=== PATIENT | female | born 1995 | race Caucasian/White ===

== ENCOUNTER 2021-01-18 08:34 | Emergency (ER) | payer OTHER, SELFPAY ==
--- NOTE | ~2021-01-18 | US_ITS ---
EXAMINATION: ULTRASOUND PELVIS TRANSABDOMINAL/TRANSVAGINAL COMPLETE CLINICAL INFORMATION: Irregular periods, lower abdominal pain and cramping. COMPARISON: None TECHNIQUE: Multiple 2-D grayscale and Doppler transabdominal/transvaginal ultrasound images of the pelvis were obtained. FINDINGS: Uterus: Anteverted/retroflexed measuring 10.8 x 4.1 x 4.9 cm with a volume of 112 mL. The endometrial stripe measures up to 0.4 cm without focal abnormality. The cervix is closed without abnormality measuring approximately 3.4 cm in length. Right ovary: 4.9 x 3.9 x 4.4 cm with a volume of 39 mL. An associated anechoic cyst measures 3.9 x 3.6 x 3.3 cm. Color Doppler showed no internal vascular flow. Doppler interrogation of the right ovary showed no abnormality. Left ovary: 2.7 x 2.1 x 2.7 cm with a volume of 7.4 mL. A small heterogeneous cyst/follicle measures 1.8 x 1.3 x 1.2 cm. Color Doppler showed no associated vascular flow. Doppler interrogation of the left ovary showed no abnormality. Free fluid: Mild free fluid in the cul-de-sac. US/US pelvic ovarian doppler IMPRESSION: 1. Anteverted/retroflexed uterus without other significant abnormality. 2. Bilateral ovarian cysts, right greater than left as well as mild free fluid in the cul-de-sac are likely physiologic.
--- NOTE | ~2021-01-18 | US_ITS ---
EXAMINATION: ULTRASOUND PELVIS TRANSABDOMINAL/TRANSVAGINAL COMPLETE CLINICAL INFORMATION: Irregular periods, lower abdominal pain and cramping. COMPARISON: None TECHNIQUE: Multiple 2-D grayscale and Doppler transabdominal/transvaginal ultrasound images of the pelvis were obtained. FINDINGS: Uterus: Anteverted/retroflexed measuring 10.8 x 4.1 x 4.9 cm with a volume of 112 mL. The endometrial stripe measures up to 0.4 cm without focal abnormality. The cervix is closed without abnormality measuring approximately 3.4 cm in length. Right ovary: 4.9 x 3.9 x 4.4 cm with a volume of 39 mL. An associated anechoic cyst measures 3.9 x 3.6 x 3.3 cm. Color Doppler showed no internal vascular flow. Doppler interrogation of the right ovary showed no abnormality. Left ovary: 2.7 x 2.1 x 2.7 cm with a volume of 7.4 mL. A small heterogeneous cyst/follicle measures 1.8 x 1.3 x 1.2 cm. Color Doppler showed no associated vascular flow. Doppler interrogation of the left ovary showed no abnormality. Free fluid: Mild free fluid in the cul-de-sac. US/US pelvic and transvaginal IMPRESSION: 1. Anteverted/retroflexed uterus without other significant abnormality. 2. Bilateral ovarian cysts, right greater than left as well as mild free fluid in the cul-de-sac are likely physiologic.
[2021-01-18 08:57] VITALS: BP 122/77; PULSE 57; RESP 18; TEMP 36.6; O2SAT 98; BMI 17.3
[2021-01-18 09:14] LABS: Glucose Urine UA NEG (NEG); Leukocyte Esterase Urine NEG (NEG); Nitrite Urine NEG (NEG); Specific Gravity - Urine 1.025 (1.005-1.025); Urine Blood NEG (NEG); Urine Ketones NEG (NEG); Urine Protein NEG (NEG-TRACE)
[2021-01-18 09:15] LABS: Appearance Urine CLEAR; Color Urine YELLOW
[2021-01-18 09:16] LABS: UPreg QC Valid YES; Urine Pregnancy NEGATIVE (NEGATIVE)
--- NOTE | 2021-01-18 09:33 | ED_ITS ---
HPI - Female Genitourinary General Chief complaint: General Medical Stated complaint: ? Time Seen by Provider: 01/18/21 09:11 Source: patient Mode of arrival: ambulatory Limitations: no limitations History of Present Illness HPI Narrative: 25-year-old female who has had 5 prior pregnancies in the past and 3 live births presenting to the ED with complaints of irregular periods since October with a positive test in October. Although reports that she went to her PCP and had a urine and blood test which were negative. Although she is not convinced that she is not because she had a positive test in October that she was able to show me a picture of. Patient reports she is concerned because she feels her baby moving in her abdomen despite the negative test and blood test. She is requesting repeat urine/ blood and ultrasound to evaluate if she is possibly . She reports I am not crazy I feel something moving in my abdomen and I have a bump . MD elicited complaint: suspected and other Onset (ago): month(s) ( Since October) Location of symptoms: suprapubic Quality of pain: cramping Consistency: intermittent Vaginal discharge: none Vaginal bleeding: none Treatment prior to arrival: none Sexual activity: Yes Possible : unsure if , at home test positive and other ( Although she had a negative urine and serum at her PCPs off ice) Related Data Allergies Allergy/AdvReac Type Severity Reaction Status Date / Time No Known Allergies Allergy Unverified 04/01/20 16:17 [No Known Allergies*] Review of Systems Review of Systems: Constitutional : No Fever, No Chills ENT/Mouth : No sore throat, No Rhinorrhea Eyes: No Eye Pain, No Redness Cardiovascular : No Chest Pain, No SOB Respiratory : No Cough, No Sputum, No Wheezing Gastrointestinal : No Nausea, No Vomiting, No Diarrhea, positive abdominal pain, Genitourinary : + irregular bleeding/menses, No Dysuria, No Urinary Frequency, No pelvic pain, No vaginal discharge, no hematuria Musculoskeletal : No Myalgias Skin : No rash Neuro : No Weakness, No Headache Psych : No Anxiety/Panic, No Depression Heme/Lymph: No bruising, No Lymphadenopathy Endocrine : No Polyuria, No Polydipsia Yes all other systems are reviewed and are negative PMFSH Past Medical History Attestation statement: The following information was validated with the patient. Social History Social History Advance Directives: No Advance Directives Information Provided: No Physical Exam Vital Signs: Vital Signs: Last Vital Signs Temp 98 F 01/18/21 08:57 Pulse 61 01/18/21 11:01 Resp 16 01/18/21 11:01 BP 103/70 01/18/21 11:01 Pulse Ox 98 01/18/21 11:01 Body Mass Index 17.3 vital signs have been reviewed as normal and appeared to be correct. Blood pressure normal. Heart rate normal. Respiration rate normal. Temperature normal. Oxygen saturation normal. Appearance: Alert. Oriented X3. No acute distress. Head: Normal external exam. Normocephalic. Eyes: PERRLA. EOMI. Conjunctiva and sclera normal. Eyelids normal. ENT: Pharynx normal. Uvula midline. Moist mucous membranes. Neck: Normal inspection. Neck supple. FROM. No adenopathy. No meningeal signs. CVS: Normal heart rate and rhythm. Heart sound normal. No murmurs noted. Pulses normal throughout. Respiratory: No respiratory distress. Painless inspiration. Breath sounds normal. No wheezes/rales/rhonchi noted. Chest nontender. No accessory muscle usage noted or decreased air movement noted. Abdomen: Soft and nontender. Nondistended. No guarding. No rigidity. Bowel sounds normal in all 4 quadrants. No distention noted. No organomegaly noted. No visible injury noted. No rebound tenderness. Negative Rovsing sign. Negative obturator's sign. Negative psoas sign. Negative Ferguson sign. Back: No CVA tenderness. Full range of motion noted. Skin: Skin warm and dry. Normal skin color. Normal skin turgor. No rashes/lesions/lacerations noted. Extremities: Extremities exhibit normal range of motion. Extremities nontender. Neuro: Oriented X 3. No motor deficit. No sensory deficit. Reflexes normal. Normal steady gait. Course Course Course Narrative: 9:30am 25-year-old female presenting to the ED with complaints of irregular periods suprapubic abdominal cramping and a positive home test in October. Although followed up with her PCP and had a negative urine and negative blood . Although patient is not convince because she reports she feels something moving in her abdomen. Therefore she is requesting an ultrasound along with a urine and a blood test. - Dr. Beverly and I did a bedside ultrasound and we do not see a sac. Will obtain labs that includes a urine and a serum quant and a pelvic/transvaginal ultrasound then re-evaluate. Reevaluation(s) Reevaluation #1: all labs within normal limits. Patient had a negative serum quant. Patient had a negative urine . UA within normal limits no evidence of UTI. Pelvic/transvaginal /ovarian / Doppler ultrasound revealed bilateral ovarian cyst otherwise no other acute processes. Therefore printed all of this out and given to the patient and told her that there is no way she is . Patient is excited about this I explained to her there is no further workup that she needs at this time. Along with instructions return if any new or worsening symptoms to follow-up with OBGYN/PCP. Patient understands agrees with this plan. Time: 11:14 [facility] - Female Genitourinary Medical Records Attestation: I reviewed the patient's medical records. Lab Data Attestation: I reviewed the patient's lab results. Result diagrams: 01/18/21 10:28 01/18/21 10:28 Labs: Lab Results 01/18/21 01/18/21 01/18/21 Range/Units 09:08 09:08 10:28 WBC 3.3 L (4.8-10.8) X10*3/uL RBC 5.00 (4.20-5.50) X10*6/uL Hgb 13.5 (12.0-16.0) g/dl Hct 41.6 (37-47) % MCV 83.2 (80-98) fL MCH 27.0 (27.0-33.0) pg MCHC 32.5 (31.0-35.0) g/dl RDW 13.6 (11.0-16.0) % Plt Count 240 (160-400) X10*3/uL MPV 9.8 (9.4-12.3) fL Immature Gran % (Auto) 0.3 (0.0-0.4) % Neut % (Auto) 31.7 L (45-73) % Lymph % (Auto) 60.7 H (20-40) % [place] % (Auto) 4.6 (2-11) % Eos % (Auto) 2.1 (0-4) % Baso % (Auto) 0.6 (0-2) % Lymph # (Auto) 2.0 (1.2-4.9) X10*3/uL [place] # (Auto) 0.2 (0.1-1.2) X10*3/uL Eos # (Auto) 0.1 (0.0-0.4) X10*3/uL Baso # (Auto) 0.0 (0.0-0.2) X10*3/uL Abs Immat Gran (auto) 0.01 (0.00-0.03) X10*3/uL Absolute Neuts (auto) 1.0 L (2.0-8.3) X10*3/uL Absolute Nucleated RBC 0.000 (0.0-0.012) X10*3/uL Nucleated RBC % (auto) 0.0 (0.0-0.2) /100WBC Smear Tech's Comments VERIFIED Sodium (135-145) mmol/L Potassium (3.3-5.1) mmol/L Chloride (96-108) mmol/L Carbon Dioxide (22-29) mmol/L Anion Gap (12-20) BUN (9-16) mg/dL Creatinine (0.5-1.4) mg/dL Estim Creat Clear Calc Estimated GFR Random Glucose (60-115) mg/dL Calcium (8.4-10.2) mg/dL Magnesium (1.6-2.6) mg/dL Total Bilirubin (0.0-1.0) mg/dL AST (5-31) U/L ALT (0-31) U/L Alkaline Phosphatase (39-117) U/L Total Protein (6.5-8.0) g/dL Albumin (3.5-5.0) g/dL Beta HCG, Quant mIU/mL Urine Color YELLOW Urine Appearance CLEAR Urine pH 6.0 (5.0-8.0) Ur Specific [place] 1.025 (1.005-1.025) Urine Protein NEG (NEG-TRACE) MG/DL Urine Glucose (UA) NEG (NEG) MG/DL Urine Ketones NEG (NEG) MG/DL Urine Blood NEG (NEG) Urine Nitrite NEG (NEG) Ur Leukocyte Esterase NEG (NEG) Urine Test NEGATIVE (NEGATIVE) 01/18/21 01/18/21 Range/Units 10:28 10:29 WBC (4.8-10.8) X10*3/uL RBC (4.20-5.50) X10*6/uL Hgb (12.0-16.0) g/dl Hct (37-47) % MCV (80-98) fL MCH (27.0-33.0) pg MCHC (31.0-35.0) g/dl RDW (11.0-16.0) % Plt Count (160-400) X10*3/uL MPV (9.4-12.3) fL Immature Gran % (Auto) (0.0-0.4) % Neut % (Auto) (45-73) % Lymph % (Auto) (20-40) % [place] % (Auto) (2-11) % Eos % (Auto) (0-4) % Baso % (Auto) (0-2) % Lymph # (Auto) (1.2-4.9) X10*3/uL [place] # (Auto) (0.1-1.2) X10*3/uL Eos # (Auto) (0.0-0.4) X10*3/uL Baso # (Auto) (0.0-0.2) X10*3/uL Abs Immat Gran (auto) (0.00-0.03) X10*3/uL Absolute Neuts (auto) (2.0-8.3) X10*3/uL Absolute Nucleated RBC (0.0-0.012) X10*3/uL Nucleated RBC % (auto) (0.0-0.2) /100WBC Smear Tech's Comments Sodium 139 (135-145) mmol/L Potassium 4.1 (3.3-5.1) mmol/L Chloride 105 (96-108) mmol/L Carbon Dioxide 25 (22-29) mmol/L Anion Gap 13 (12-20) BUN 7 L (9-16) mg/dL Creatinine 0.86 (0.5-1.4) mg/dL Estim Creat Clear Calc 73.1 Estimated GFR > 60 Random Glucose 87 (60-115) mg/dL Calcium 10.1 (8.4-10.2) mg/dL Magnesium 2.2 (1.6-2.6) mg/dL Total Bilirubin 1.4 H (0.0-1.0) mg/dL AST 20 (5-31) U/L ALT 20 (0-31) U/L Alkaline Phosphatase 51 (39-117) U/L Total Protein 8.5 H (6.5-8.0) g/dL Albumin 4.9 (3.5-5.0) g/dL Beta HCG, Quant < 2 mIU/mL Urine Color Urine Appearance Urine pH (5.0-8.0) Ur Specific [place] (1.005-1.025) Urine Protein (NEG-TRACE) MG/DL Urine Glucose (UA) (NEG) MG/DL Urine Ketones (NEG) MG/DL Urine Blood (NEG) Urine Nitrite (NEG) Ur Leukocyte Esterase (NEG) Urine Test (NEGATIVE) Imaging Data Pelvic/ovarian/ Doppler/transvaginal ultrasound: Attestation: I personally reviewed and interpreted this imaging study as follows: Radiologist's impression: FINDINGS: Uterus: Anteverted/retroflexed measuring 10.8 x 4.1 x 4.9 cm with a volume of 112 mL. The endometrial stripe measures up to 0.4 cm without focal abnormality. The cervix is closed without abnormality measuring approximately 3.4 cm in length. Right ovary: 4.9 x 3.9 x 4.4 cm with a volume of 39 mL. An associated anechoic cyst measures 3.9 x 3.6 x 3.3 cm. Color Doppler showed no internal vascular flow. Doppler interrogation of the right ovary showed no abnormality. Left ovary: 2.7 x 2.1 x 2.7 cm with a volume of 7.4 mL. A small heterogeneous cyst/follicle measures 1.8 x 1.3 x 1.2 cm. Color Doppler showed no associated vascular flow. Doppler interrogation of the left ovary showed no abnormality. Free fluid: Mild free fluid in the cul-de-sac. US/US pelvic and transvaginal IMPRESSION: 1. Anteverted/retroflexed uterus without other significant abnormality. 2. Bilateral ovarian cysts, right greater than left as well as mild free fluid in the cul-de-sac are likely physiologic. Discharge Plan Discharge Clinical Impression: Ovarian cyst Patient Disposition: Home, Self-Care Instructions: Ovarian Cyst (ED) Additional Instructions: You had a negative urine . We also did a blood test which is also negative. We also performed an ultrasound and you do not have a fetus. There is no you are today. Most likely you were feeling your ovarian cyst that possibly ruptured. Return if any new or worsening symptoms and follow-up with your PCP/OBGYN. Referrals: Evin Scherer MD [Primary Care Provider] - 2 days Print Language: Portuguese
--- NOTE | 2021-01-18 09:51 | PC.NURSE ---
pt currently in us
[2021-01-18 10:34] LABS: Basophils Percent Auto 0.6 % (0-2); Eosinophils Absolute Auto 0.1 X10*3/uL (0.0-0.4); Eosinophils Percent Auto 2.1 % (0-4); Hematocrit 41.6 % (37-47); Hemoglobin 13.5 g/dl (12.0-16.0); Imm Gran Abs Auto 0.01 X10*3/uL (0.00-0.03); Imm Gran Pct Auto 0.3 % (0.0-0.4); Lymphocytes Percent Auto 60.7 % (20-40); MANUAL DIFF FLAG SCAN; Mean Corpuscular HGB Conc 32.5 g/dl (31.0-35.0); Mean Corpuscular Volume 83.2 fL (80-98); Mean Platelet Volume 9.8 fL (9.4-12.3); Monocytes Absolute Auto 0.2 X10*3/uL (0.1-1.2); Monocytes Percent Auto 4.6 % (2-11); Neutrophils Percent Auto 31.7 % (45-73); Platelet Count 240 X10*3/uL (160-400); Red Cell Distribution Width 13.6 % (11.0-16.0); SCAN SMEAR FLAG 1; White Blood Count 3.3 X10*3/uL (4.8-10.8)
[2021-01-18 10:53] LABS: SLIDE REVIEW VERIFIED
[2021-01-18 10:57] LABS: Alanine Aminotransferase 20 U/L (0-31); Albumin Level 4.9 g/dL (3.5-5.0); Alkaline Phosphatase 51 U/L (39-117); Anion Gap 13 (12-20); Aspartate Amino Transferase 20 U/L (5-31); Bilirubin Total 1.4 mg/dL (0.0-1.0); Blood Urea Nitrogen 7 mg/dL (9-16); Calcium 10.1 mg/dL (8.4-10.2); Carbon Dioxide 25 mmol/L (22-29); Chloride 105 mmol/L (96-108); Creatinine Clr Calc Pharmacy 73.1; Estimated Glomerular Filt Rate > 60; Glucose Random 87 mg/dL (60-115); Potassium 4.1 mmol/L (3.3-5.1); Sodium 139 mmol/L (135-145); Total Protein 8.5 g/dL (6.5-8.0)
[2021-01-18 10:57] LABS: Magnesium 2.2 mg/dL (1.6-2.6)
[2021-01-18 11:01] VITALS: BP 103/70; PULSE 61; RESP 16; O2SAT 98
[2021-01-18 11:03] LABS: HCG Quantitative < 2 mIU/mL
== END 2021-01-18 11:39 | disposition home or self-care (01) ==
PROVIDERS: Physician Assistant Medical; Emergency Provider Emergency Medicine; PCP Internal Medicine
DX: N83.202 Unspecified ovarian cyst, left side (principal); N83.201 Unspecified ovarian cyst, right side
CPT/HCPCS: 36415; 76830; 76856; 80053; 81003; 81025; 83735; 84702; 85025; 93975; 99284

== ENCOUNTER 2023-02-01 11:19 | Emergency (ER) | payer OTHER, SELFPAY ==
[2023-02-01 11:23] VITALS: BP 112/73; PULSE 60; RESP 18; TEMP 36.4; O2SAT 100; BMI 19.7
--- NOTE | 2023-02-01 11:23 | ED_ITS ---
HPI - General Adult General Chief complaint: Eye Problems Stated complaint: swollen eye Time Seen by Provider: 02/01/23 11:35 Related Data Allergies Allergy/AdvReac Type Severity Reaction Status Date / Time No Known Allergies Allergy Verified 02/01/23 11:23 [No Known Allergies*] [facility] Social History Social History Advance Directives: No Physical Exam ED Vital Signs: Vital Signs - 24 hr 02/01/23 11:23 Temperature 97.5 F Pulse Rate 60 Respiratory Rate 18 Blood Pressure 112/73 Pulse Oximetry 100 Oxygen Delivery Method Room Air BMI result Body Mass Index 19.7 Course Course Course Narrative: This is an RME: Additional HPI, ROS, PE not included below will be deferred to primary provider. This is a [id number]-female presenting to the emergency department for evaluation of left eye pain since Sunday. Pt reports that she hit her left eye on the corner of her bed on sunday. Continues to have painful, red eye. + photophobia. She also reports that she has left eye lateral deviation occasionally, I did not see this on brief examination. Will need more thorough eye examination +/- diagnostic imaging. Will defer until fully evaluated by jose g jeong provider in main emergency department. Discussed with provider, Graciela Richardson PA-C who will see patient. Vital signs stable. Medications Administered Discontinued Medications Generic Name Dose Route Start Last Admin Trade Name Freq PRN Reason Stop Dose Admin Fluorescein Sodium 1 strip 02/01/23 11:44 02/01/23 11:47 Fluorescein Sodium Strip EYE-LEFT 02/01/23 11:45 1 strip ONCE ONE Administration Tetracaine HCl 3 drop 02/01/23 11:43 02/01/23 11:47 Tetracaine Hcl/Pf 0.5% Oph Allyssa 4 Ml Drops EYE-LEFT 02/01/23 11:44 3 drop ONCE ONE Administration
--- NOTE | 2023-02-01 11:31 | PC.NURSE ---
pt visual acuity done, pt does wear glasses for distance at baseline
[2023-02-01] MEDS: Fluorescein Sodium STRIP 1 STRIP EYE-LEFT (11:47)
[2023-02-01] MEDS: Tetracaine HCl/PF 0.5% Oph Sol 4 ML DROPS 3 DROP EYE-LEFT (11:47)
--- NOTE | 2023-02-01 12:47 | ED.EYEPROB ---
HPI - Eye Problem General Chief complaint: Eye Problems Stated complaint: swollen eye Time Seen by Provider: 02/01/23 11:35 Source: patient Mode of arrival: ambulatory Limitations: no limitations History of Present Illness HPI Narrative: 27-year-old female presenting to the ER with complaints of left eye pain / injury with decreased vision and feeling like a white and red line on the left side in the middle of my left eye and I feel like my left eye goes towards the left on its own . She reports that she was cleaning her house/ room and she accidentally hit the corner of her bed last Sunday and she initially thought she was okay although she continues to have the symptoms therefore she came here for further evaluation treatment. She reports she is up-to-date on tetanus. She does not have an slitter and cutter operator at this time. She does were glasses normally. MD chief complaint: eye pain, eye injury and vision change Onset (ago): week(s) (1) Onset description: sudden and gradual Duration: constant Location: left eye Eye Symptoms: redness, pain, decreased vision, blurry vision and photophobia Place: home Mechanism: direct trauma Severity: mild If Pain, Quality: aching Context: trauma Treatments Prior to Arrival: irrigated eye Related Data Patient tetanus UTD: Yes Allergies Allergy/AdvReac Type Severity Reaction Status Date / Time No Known Allergies Allergy Verified 02/01/23 11:23 [No Known Allergies*] Review of Systems Review of Systems: Constitutional : No fevers, no chills, No changes in activity, No lethargy, No recent prior head injury, No agitation, No increased fussiness ENT/Mouth : No Ear Pain, No Nasal discharge/drainage Eyes: + Vision changes/blurry/decreased vision, + Eye Pain, + left eye redness, + Photophobia, No Swelling, No Foreign Body, no discharge, no drainage, no itching, no eyelid edema, no contact lens uses, no recent welding, no bleeding Cardiovascular : No Chest Pain, No SOB Respiratory : No Cough Gastrointestinal : No Nausea, No Vomiting, No abdominal Pain Genitourinary : No Dysuria, No Urinary Frequency, No Urinary Incontinence, No Urgency, No Flank Pain Musculoskeletal : No joint pain, No neck stiffness, No back pain/injury Skin : No lacerations Neuro : No unsteady gait, No Paresthesias, No Loss of Consciousness, No altered mental status, No dizziness, No Headache Denies past medical history of HIV, recent trauma, coagulopathy, recent spinal/ epidural procedure, new medication, URI symptoms, close contacts with similar symptoms, tick bite, or known CO2 exposure. Yes all other systems are reviewed and are negative [facility] Past Medical History Attestation statement: The following information was validated with the patient. Source: old records reviewed and nursing notes reviewed Social History Social History Advance Directives: No Physical Exam Vital Signs: Vital Signs: Last Vital Signs Temp 97.5 F 02/01/23 11:23 Pulse 60 02/01/23 11:23 Resp 18 02/01/23 11:23 BP 112/73 02/01/23 11:23 Pulse Ox 100 02/01/23 11:23 O2 Del Method Room Air 02/01/23 11:23 BMI result Body Mass Index 19.7 vital signs have been reviewed as normal and appeared to be correct. Blood pressure normal. Heart rate normal. Respiration rate normal. Temperature normal. Oxygen saturation normal. Appearance: Alert. Oriented X3. No acute distress. Head: Normal external exam. Normocephalic. Patient noted to have left periorbital ecchymosis. Otherwise no additional Herrera signs. She does not have any ecchymosis to the right eye. Eyes: PERRLA. EOMI. Conjunctiva are normal. Cornea are normal. Right funduscopic exam within normal limits. Left funduscopic exam unable to see past the cornea. Unable to visualize red reflex the left eye. Normal red reflex to the right eye. mild injection/ erythema to left sclera. Right Sclera normal. Eyelids normal. No papilledema noted. right Anterior chamber normal. + to left eye photophobia noted. Pressure to right eye is 12. Pressure to left eye is 8. Visual acuity to right eye 20/50. Visual acuity to left eye 20/70. visual acuity was uncorrected without glasses. no deviations noted on my exam. ENT: EAC normal. TM's Normal. Pharynx normal. Uvula midline. Moist mucous membranes. Neck: Normal inspection. Neck supple. FROM. No adenopathy. Thyroid Normal. No meningeal signs. No neck mass noted. CVS: Normal heart rate and rhythm. Heart sound normal. No murmurs noted. Pulses normal throughout. Respiratory: No respiratory distress. Painless inspiration. Breath sounds normal. Back: Full range of motion noted. Skin: Skin warm and dry. Normal skin color. Normal skin turgor. No rashes/lesions/lacerations noted. Extremities: Extremities exhibit normal range of motion. Extremities nontender. Neuro: Oriented X 3. No motor deficit. No sensory deficit. Reflexes normal. Course Course Course Narrative: This is an RME: Additional HPI, ROS, PE not included below will be deferred to primary provider. This is a [id number]-female presenting to the emergency department for evaluation of left eye pain since Sunday. Pt reports that she hit her left eye on the corner of her bed on sunday. Continues to have painful, red eye. + photophobia. She also reports that she has left eye lateral deviation occasionally, I did not see this on brief examination. Will need more thorough eye examination +/- diagnostic imaging. Will defer until fully evaluated by primary provider in main emergency department. Discussed with provider, Graciela Richardson PA-C who will see patient. Vital signs stable. Reevaluation(s) Reevaluation #1: On exam PERRLA. EOMI. Conjunctiva are normal. Cornea are normal. Right funduscopic exam within normal limits. Left funduscopic exam unable to see past the cornea. Unable to visualize red reflex the left eye. Normal red reflex to the right eye. mild injection/ erythema to left sclera. Right Sclera normal. Eyelids normal. No papilledema noted. right Anterior chamber normal. + to left eye photophobia noted. Pressure to right eye is 12. therefore I discussed this case with Dr. Barrett he recommended transferring the patient to Dr. Traore for further evaluation treatment. although we did stain the eye and patient noted to have medium size corneal abrasion to the 6/07:00 o'clock area of the eye left-sided. No foreign bodies are noted. not consistent with obvious hyphema; hypopyon; scleritis: Rupture globe; orbital wall fracture; retrobulbar hemorrhage; chemical burn; iritis; orbital cellulitis. Could possibly be retinal detachment unable to completely rule out this is why the patient will have to be evaluated by Ophthalmology for further evaluation treatment. Patient was given erythromycin although not applied. Patient will go directly to Dr. Traore as I spoke to their office and they are willing to see the patient at this time. Patient understands to go directly there for further evaluation treatment. Time: 13:01 Medications Administered Discontinued Medications Generic Name Dose Route Start Last Admin Trade Name Lyndsey PRN Reason Stop Dose Admin Fluorescein Sodium 1 strip 02/01/23 11:44 02/01/23 11:47 Fluorescein Sodium Strip EYE-LEFT 02/01/23 11:45 1 strip ONCE ONE Administration Tetracaine HCl 3 drop 02/01/23 11:43 02/01/23 11:47 Tetracaine Hcl/Pf 0.5% Oph Allyssa 4 Ml Drops EYE-LEFT 02/01/23 11:44 3 drop ONCE ONE Administration Medical Decision Making Medical Decision Making MDM Narrative: see course Differential Diagnosis Differential Diagnoses: The differential diagnosis associated with the presentation includes see course Consult Healthcare Provider Management of the patient was discussed with: Tea Room Manager Dr. Traore slitter and cutter operator External Record Review External record reviewed: Inpatient record, Office record, Outpatient record, Prior outpatient labs, Prior outpatient radiology, Primary care record and Outside ED record All prior labs the are accessible in our system including notes /EKG and imaging reviewed by myself Tests considered The following testing was considered but not selected: CT scan was considered although Dr. Barrett does not believe it is indicated at this time as this happened 1 week ago and patient does not have any entrapment of extraocular movements Prescription Management I considered prescription management with: Antibiotic ( erythromycin for corneal abrasion) Social Determinants Patient?s care significantly limited by Social Determinants of Health including: Low income and Other Social Determinant of Health Discharge Plan Discharge Clinical Impression: Corneal abrasion, Left eye injury, Traumatic ecchymosis of left orbit Patient Disposition: Home, Self-Care Instructions: Corneal Abrasion (ED) Referrals: Angelito Traore [Physician] - 02/01/23 ( go directly there to be further evaluated)
--- NOTE | 2023-02-01 12:51 | PC.NURSE ---
DEMETRIA Richardson spoke with MD Traore's office he will see pt today- pt to be discharged to his office
[2023-02-01] MEDS: Erythromycin Base 0.5% Oph Oin 1 GM TUBE 1 CM EYE-LEFT (12:55)
== END 2023-02-01 13:01 | disposition home or self-care (01) ==
PROVIDERS: Emergency Provider Emergency Medicine; PCP Internal Medicine
DX: S05.02XA Injury of conjunctiva and corneal abrasion without foreign body, left eye, initial encounter (principal); S05.12XA Contusion of eyeball and orbital tissues, left eye, initial encounter; W22.03XA Walked into furniture, initial encounter; Y93.89 Activity, other specified; Y92.013 Bedroom of single-family (private) house as the place of occurrence of the external cause; Y99.9 Unspecified external cause status
CPT/HCPCS: 99282; 99283